=== PATIENT | male | born 1945 | race Caucasian/White ===

== ENCOUNTER → 2020-02-20 | Outpatient (CLI) | payer OTHER, MEDICARE | LOC: SJCVCIMAG 14:26 | DX: R06.00 Dyspnea, unspecified (principal); I48.0 Paroxysmal atrial fibrillation; I10 Essential (primary) hypertension; E78.5 Hyperlipidemia, unspecified ==

== ENCOUNTER → 2020-03-30 | Outpatient (CLI) | payer OTHER, MEDICARE | LOC: SJCVC 13:07 | PROVIDERS: ATTEND Internal Medicine Cardiovascular Disease | DX: I48.0 Paroxysmal atrial fibrillation (principal); I10 Essential (primary) hypertension; R94.31 Abnormal electrocardiogram [ECG] [EKG]; E78.00 Pure hypercholesterolemia, unspecified; K21.9 Gastro-esophageal reflux disease without esophagitis; Z79.82 Long term (current) use of aspirin; Z79.899 Other long term (current) drug therapy; Z87.891 Personal history of nicotine dependence ==

== ENCOUNTER → 2020-04-06 | Outpatient (CLI) | payer OTHER, MEDICARE | LOC: SJCVC 13:34 | PROVIDERS: ATTEND Internal Medicine Cardiovascular Disease | DX: R94.31 Abnormal electrocardiogram [ECG] [EKG] (principal); I11.9 Hypertensive heart disease without heart failure; I48.3 Typical atrial flutter; I48.0 Paroxysmal atrial fibrillation; K21.9 Gastro-esophageal reflux disease without esophagitis; Z79.899 Other long term (current) drug therapy; Z87.891 Personal history of nicotine dependence ==

== ENCOUNTER → 2020-04-23 | Outpatient (CLI) | payer OTHER, MEDICARE ==
[2020-04-23 10:12] LABS: ABSOLUTE NEUTROPHILS 1.8 thou/uL (1.4-8.2); BASOPHILS 1.3 % (0.0-2.0); EOSINOPHILS 3.9 % (0.0-3.0); HEMATOCRIT 43.1 % (42.0-52.0); HEMOGLOBIN 14.5 gm/dL (14.0-18.0); LYMPHOCYTES 35.6 % (24.0-44.0); MCH 35.1 pg (26.0-34.0); MCHC 33.6 g/dL (28.0-37.0); MCV 104.5 fL (80.0-100.0); PLATELET COUNT 189 thou/uL (150-400); POLYS 49.2 % (36.0-66.0); RBC 4.12 mil/uL (4.50-6.00); RDW 14.5 % (10.5-14.5); WBC 3.6 thou/uL (4.0-11.0)
[2020-04-23 10:36] LABS: CALCIUM 8.7 mg/dL (8.5-10.1); POTASSIUM 4.2 mmol/L (3.5-5.1); TOTAL BILIRUBIN 0.6 mg/dL (0.2-1.0)
== END ==
LOC: CATH 09:20 → CAT 11:28 → EDSTATUS 11:44 → CATH 11:47
PROVIDERS: ATTEND Internal Medicine Cardiovascular Disease
DX: N28.1 Cyst of kidney, acquired (principal); I48.91 Unspecified atrial fibrillation; I71.2 Thoracic aortic aneurysm, without rupture

== ENCOUNTER → 2020-04-23 | Outpatient (CLI) | payer OTHER, MEDICARE | LOC: LAB | PROVIDERS: ATTEND Internal Medicine Cardiovascular Disease | DX: Z01.812 Encounter for preprocedural laboratory examination (principal); Z20.828 Contact with and (suspected) exposure to other viral communicable diseases ==

== ENCOUNTER → 2020-07-19 | Outpatient (CLI) | payer OTHER, MEDICARE | LOC: CAT 09:41 | PROVIDERS: ATTEND Internal Medicine | DX: R91.1 Solitary pulmonary nodule (principal); I08.0 Rheumatic disorders of both mitral and aortic valves; N28.1 Cyst of kidney, acquired ==

== ENCOUNTER → 2020-08-12 | Outpatient (CLI) | payer OTHER, MEDICARE ==
[~2020-08-12] MED LIST: BYSTOLIC10 MG PO; GLUCOSAMINE1000 MG PO; IBU600 MG PO; LOSARTAN-HCTZ1 EAC3 PO; PRAVACHOL 20 MG20 M1 PO; PROPAFENONE 22225 M1 PO; VITAMIN C1000 MG PO; XARELTO20 MG PO
== END ==
LOC: SJCVCIMAG 07:15
PROVIDERS: ATTEND Internal Medicine Cardiovascular Disease
DX: I73.9 Peripheral vascular disease, unspecified (principal); R09.89 Other specified symptoms and signs involving the circulatory and respiratory systems; E78.5 Hyperlipidemia, unspecified; Z87.891 Personal history of nicotine dependence

== ENCOUNTER → 2020-08-13 | Outpatient (CLI) | payer OTHER, MEDICARE | LOC: LAB 08:38 | PROVIDERS: ATTEND Surgery Vascular Surgery | DX: Z01.812 Encounter for preprocedural laboratory examination (principal); Z20.828 Contact with and (suspected) exposure to other viral communicable diseases ==

== ENCOUNTER 2020-08-19 06:28 | Inpatient (IN) | payer OTHER, MEDICARE ==
[2020-08-13 13:33] LABS: URINE BILIRUBIN NEGATIVE (Negative); URINE BLOOD NEGATIVE (Negative); URINE CLARITY CLEAR; URINE COLOR YELLOW; URINE GLUCOSE-RANDOM* NEGATIVE (Negative); URINE KETONES NEGATIVE (Negative); URINE LEUKOCYTES-REFLEX NEGATIVE (Negative); URINE NITRITE-REFLEX NEGATIVE (Negative); URINE PROTEIN (DIPSTICK) NEGATIVE (Negative); URINE UROBILINOGEN 0.2 E.U./dl (0.2-1.0)
[2020-08-13 13:39] LABS: HEMATOCRIT 40.3 % (42.0-52.0); HEMOGLOBIN 13.9 gm/dL (14.0-18.0); MCH 35.2 pg (26.0-34.0); MCHC 34.4 g/dL (28.0-37.0); MCV 102.2 fL (80.0-100.0); PLATELET COUNT 175 thou/uL (150-400); RBC 3.94 mil/uL (4.50-6.00); RDW 13.2 % (10.5-14.5); WBC 3.8 thou/uL (4.0-11.0)
[2020-08-13 13:52] LABS: ALBUMIN 3.8 g/dL (3.4-5.0); CALCIUM 8.5 mg/dL (8.5-10.1); CREATININE 0.9 mg/dL (0.7-1.3); TOTAL BILIRUBIN 0.5 mg/dL (0.2-1.0); TOTAL PROTEIN 6.5 g/dL (6.4-8.2)
[2020-08-13 13:58] LABS: APTT 29.6 Seconds (24.5-32.8); INR 1.2; PROTIME 12.2 Seconds (9.3-11.4)
--- NOTE | 2020-08-13 14:00 | NUR ---
Pt in for his PAC appt this afternoon. EKG done showing incompleted LBBB. Thomas with Dr. Senior notified and asked that we set pt up to see Dr. Savage. Call placed to office, message left with Nathalie who returned call and asked for EKG--faxed over. Pt informed that he will need cardiac clearance from Dr. Savage prior to procedure next week. Pt and verbalize understanding. Both going over to the office to see if they can schedule that appt today. Pt is wanting to await COVID testing until Sunday in the event surgery is going to be postponed.
[2020-08-13 14:11] LABS: ABSOLUTE NEUTROPHILS 2.2 thou/uL (1.4-8.2)
--- NOTE | 2020-08-13 14:44 | EKG ---
[facility] [place] [address] [place] [address] ELECTROCARDIOGRAM REPORT Name: SALVATORE TOMLINSON Room #: [facility] IN ..#: [id number] Admission: Attend Phys: Babak Senior MD Discharge: Date of : 45 Report #: [id number] THIS REPORT FOR: cc: MANDIE - [place] family physician/PCP MANDIE - [place] family physician/PCP Brendan Trammell MD [facility] ~ THIS REPORT FOR: //name// [facility] Test Date: 2020-08-13 Test Time: 13:40:26 Pat Name: SALVATORE TOMLINSON Department: Room: Gender: Insulation Blanket Maker: [facility] : 1945 Requested By: Babak Senior Order Number: [id number] : Brendan Trammell Measurements Intervals [place] Rate: 58 P: 45 SC: 211 QRS: -43 QRSD: 118 T: -31 QT: 460 QTc: 452 Interpretive Statements Sinus rhythm Non specific ST-T changes lead III No previous ECG available for comparison Electronically Signed On 08-13-2020 14:44:30 MEDICAL RECORDS LIBRARY PROFESSOR by Brendan Trammell [email or web address] <ELECTRONICALLY SIGNED> By: Brendan Trammell MD, FACC 08/13/20 1444 1340 1340 Brendan Trammell MD, FACC /EPI
[2020-08-19] VITALS (31 sets, daily range): BP systolic 104–147; BP diastolic 43–73
[~2020-08-19] VITALS: Ht 182.9 cm; Wt 91.2 kg
--- NOTE | 2020-08-19 18:01 | NUR ---
PT ARRIVED TO THE UNIT ON PHYSICAL THERAPY PROFESSOR FENTANYL DRIP AT 1300, R CHEST TUBE PRESENT SET AT 20mmHG SUCTION, SANGUINEOUS FLUID DRAINING. PT C/O 7/10 PX, WITH USAGE OF PHYSICAL THERAPY PROFESSOR AND NONPHARM INTERVENTION PT WAS ABLE TO STATE 2/10 PX AT THE END OF THE SHIFT. AOX4, PHONE/GLASSES AT BEDSIDE. OCCASIONAL C/O NAUSEA WITH MOVEMENT, WHICH SUBSIDES WITH NO INTERVENTION. NO EMESIS THIS SHIFT. ALL SENSATIONS ARE INTACT, STRONG MOTOR STRENGTH TO ALL EXTREMETIES, PT TOLERATING PO, DECENT APPETITE. PT FAMILY AT BEDSIDE. CURRENTLY ON CARDENE DRIP AT 5. WAS AT THE BEDSIDE THIS SHIFT, AT 1356 ASKED RN ABOUT THE WORD GRANULOMATOUS WELL PT'S PROGNOSIS. RN DEFERRED THE QUESTIONS TO WHO LATER CAME BY TO SEE THE PATIENT AND PT'S WAS ABLE TO FREELY HAVE HER QUESTIONS ANSWERED TO CONTENT.
[2020-08-20] VITALS (21 sets, daily range): BP systolic 97–122; BP diastolic 51–73
--- NOTE | 2020-08-20 04:55 | NUR ---
ASSUMED PT CARE AT 1900. PT A&0X4, VSS. ON 5 MCG OF CARDENE; BEGAN TITRATING CARDENE OFF, PT TOLERATED IT WELL, VITAL SIGNS REMAINS STABLE. PT ON 2L NC, SATS 94%. R CHEST TUBE IN PLACE SEROUS DRAINAGE NOTED GREAT U/O. PT RATES PAIN 3/10 TO 4/10 PAIN, RAND SEWER STILL IN USE. PT IS STABLE, WILL CONTINUE TO MONITOR.
[2020-08-20 06:30] LABS: HEMATOCRIT 35.4 % (42.0-52.0); HEMOGLOBIN 11.9 gm/dL (14.0-18.0); MCH 34.8 pg (26.0-34.0); MCHC 33.6 g/dL (28.0-37.0); MCV 103.6 fL (80.0-100.0); RBC 3.41 mil/uL (4.50-6.00); RDW 13.7 % (10.5-14.5); WBC 9.9 thou/uL (4.0-11.0)
[2020-08-20 06:46] LABS: CALCIUM 7.4 mg/dL (8.5-10.1); POTASSIUM 4.1 mmol/L (3.5-5.1)
--- NOTE | 2020-08-20 12:12 | NUR ---
BACK TO BED W ASSIST X1. PT C/O BLADDER FEELING FULL-BLADDER SCANNED X2 W ZERO SHOWING BOTH TIMES. PT C/O ITCHING-D/W HIM & HIS FENTANYL CIRCLE EDGER-HE'S RECEIVING BASAL WELL PRN DOSES. OFFERED BENADRYL-PT THOUGHT ABOUT IT FOR A WHILE THEN SAID NO. NO RASH,NO RAISED BUMPS. NO SOB OR WHEEZING.SETTLED FOR NAP.--VW
--- NOTE | 2020-08-20 15:29 | NUR ---
chart review. cm visited with xavier and manish via phone call. intro to cm and dcp. both reported " live at home, 4 steps enter then 9 steps then landing the 8 more up to bedrooms, if could not do that, then can make it work on the main level. no dme, drives, independent prior to hospital. manage own medication. pcp dr Mike Alfredo. do not think he will need any home health"/xavier and . he is still on o2 per nc, if needs home o2 over weekend resp therapy can arrange for xavier. physical and ot worked with xavier today. will cont following as needed for dc needs.
--- NOTE | 2020-08-20 16:12 | O ---
[facility] [place] [address] [place] [address] OPERATIVE REPORT Name: SALVATORE TOMLINSON Basil Room #: 249-P ADM IN M.R.#: [id number] Admission: 08/19/20 Attend Phys: Babak Senior MD Discharge: Date of : 45 Report #: [id number] THIS REPORT FOR: cc: MANDIE - No family physician/PCP MANDIE - No family physician/PCP Babak Senior MD ~ CC: [facility] physician/PCP Babak Senior DATE OF SERVICE: 08/19/2020 PREOPERATIVE DIAGNOSIS: Solitary nodule, right lower lobe of lung. POSTOPERATIVE DIAGNOSIS: Solitary nodule, right lower lobe of lung; granuloma by frozen section. SURGEON: Babak Senior MD INVOICE CODER: SARAH Alston. ANESTHESIA: General. INDICATIONS: The patient is a 75-year-old, referred by Dr. Torsten Nelson. The patient has a right lower lobe solitary pulmonary nodule that has seemed to grow in size over serial observations and has some activity on PET scan. The patient also has traveled to the [facility] and there is some suspicion that this could be granulomatous disease as well as malignancy. FINDINGS AND TECHNIQUE: After general anesthesia was established, flexible diagnostic bronchoscopy was performed. No endobronchial lesions were noted. A double lumen endotracheal tube was placed and its position ascertained with bronchoscopic guidance. The patient was positioned with right side up. Exposure was obtained through typical video-assisted thoracoscopy ports and the adhesions between long and chest wall were divided. These were more vascular than typical and ultimately this necessitated an open approach. Exposure was obtained through a posterolateral thoracotomy and the chest wall. Bleeding was less severe than it had appeared through the scope, but nevertheless it was dealt with. The lesion in the lower lobe was identified and wedge resection was done with serial application of staplers. This was submitted for frozen section and a diagnosis of granuloma was obtained. Hemostasis was obtained in all areas and then the chest tube was brought through the lowest port and then the incision was closed in the usual fashion. It should be mentioned that the thoracotomy was done in rib sparing, nerve [address] [address] OPERATIVE REPORT Name: SALVATORE TOMLINSON Room #: 249-P [facility] IN [facility].#: [id number] Admission: 08/19/20 Attend Phys: Babak Senior MD Discharge: Date of : 45 Report #: [id number] sparing technique to avoid pressure on the intercostal bundle. As mentioned, chest was irrigated with antibiotic solution. Chest was closed in the usual fashion to maintain the rib sparing, nerve sparing approach. The patient tolerated the procedure well and was taken to the recovery area in good condition. All counts reported as correct. <ELECTRONICALLY SIGNED> By: Babak Senior MD 08/20/20 1612 1035 1048 Babak Senior MD /nt
--- NOTE | 2020-08-20 19:59 | NUR ---
PT. ARRIVED AT FLOOR AROUND 185; DRESSING OVER CHEST TUBE BLEDDING; DRESSING CHANGED; A0X4; SR ON THE MONITOR; PASSED ON REPORT;
[2020-08-21 00:18] VITALS: BP 96/44
[2020-08-21 05:09] VITALS: BP 100/56
--- NOTE | 2020-08-21 06:25 | NUR ---
PT IS ALERT AND ORIENTED X4. LUNGS ARE CLEAR TO DIMINISHED. COMPLAINS OF SOME RIGHT SIDED PAIN STATUS POST BRONCHOSCOPY AND RIGHT THORACOTOMY. COMPLAINS OF SOME PAIN ON THE RIGHT SIDE. SLEPT DURING THE NIGHT. CHEST TUBE TO WATER SEAL. SMALL AMOUNT OF BLOODY DRAINAGE NOTED ON THAT RIGHT SIDE. SITIING UP WATCHING TV THIS AM AND PLEASANT. CALL LIGHT WITHIN REACH IF NEEDS NURSING ASSISTANCE FROM STAFF.
[2020-08-21 08:41] VITALS: BP 104/58
[2020-08-21 11:59] VITALS: BP 116/71
[2020-08-21 17:02] VITALS: BP 127/73
--- NOTE | 2020-08-21 17:23 | NUR ---
RECEIVED PT'S CARE THIS AM AROUND 0715; PT. ON BED; ALERT; DURING AM ASSESSMENT AOX4; C/O PAIN; PRN PAIN MEDICATION GIVEN WITH AM MEDICATIONS; C/O ITCHING OVER BACK; REQUESTED LOTION; LOTION APPLIED TO BACK; DURING RE-ASSESSMENT PT. C/O BURNING OVER BACK; PER PT'S SPOUSE PT. C/O ITCHING OVER "YESTERDAY", 08/21/2020, IN ICU THEREFORE DR. SALOMON D/Vito FENTANYL; PRN BENADRYL GIVEN; RE-ASSESSMENT PT. FEELING BETTER; EDUCATED ABOUT FALL PRECAUTIONS; UNDERSTANDING; DRESSING CHANGED THIS AM; SR-SB ON THE MONITOR; REQUESTED TO AMBULATE AROUND THE UNIT; [facility] [facility]; AROUND 1600 PT'S CARE TRANSFER TO INDIRA SAINI; ASSESSMENT CHARGED; FOLLOWING POC; PASSED ON REPORT;
--- NOTE | 2020-08-21 17:25 | NUR ---
pt ambulated hallway twice while holding chest tube in right hand, steady gait, walked at a quick pace, dr WATTS CAME AND REMOVED PT'S CHEST TUBE, PT NOW RESTING IN BED, PAIN MED AND BENADRY GIVEN FOR PAIN AND A GROWING ITCHING ON PT'S BACK, PT ASKED TO WEAR FACEMASK IN ROOM, SEEMS A LITTLE ANXIOUS, WILL REINFORCE EDUCATION, SPOKE WITH ABOUT NEW VISITOR POLICY, DR WATTS SAID PT WILL PROB GO HOME AFTER HE SEES HIM TOMORROW.
[2020-08-21 20:47] VITALS: BP 126/62
[2020-08-22 03:38] VITALS: BP 133/84
--- NOTE | 2020-08-22 06:11 | NUR ---
assumed pt care at the change of shift, pt is awake, alert and orientedx4, sr on the monitor, assessments as charted, c/o of right chest pain,non cardiac, pain meds given with relief, ambulated on the hallway, denies sob, surgical site cdi, still no bm this shift, denies constipation, no needs at this time, will passon report
[2020-08-22 08:26] VITALS: BP 149/75
[2020-08-22 09:53] VITALS: BP 149/75
--- NOTE | 2020-08-22 10:12 | NUR ---
ASSESSMENT CHARTED. PT ALERT AND ORIENTED. VSS. DENIED HAVING PAIN OR DISCOMFORT. REPORT FEELING BETTER TODAY. SEEN BY DR. SALOMON. ORDERS GIVED TO DISCHARGE PT TO HOME. DISCHARGE INSTRUCTIONS GIVEN TO PT PT VERBERLISED UNDERSTANDING.
--- NOTE | 2020-08-23 17:06 | PATH ---
[facility] [address] [place] [address] PATHOLOGY RPT PROCEDURE Name: SALVATORE TOMLINSON Room #: 219-P [facility] IN M.R.#: [id number] Admission: 08/19/20 Date of : 45 Discharge: 08/22/20 Report #: [id number] Path Case #: [id number] [facility] Accession Number: [id number] . 01 Material submitted: . lung - WEDGE RESECTION RIGHT LOWER LOBE LUNG - FS. Modifiers: right, lower lobe . 01 Clinical history: . LUNG MASS . 02 Frozen section diagnosis: . FROZEN SECTION DIAGNOSIS: (Tila Montana M.D.): . FSA1. Lung, right lower lobe, wedge resection: - Granulomatous inflammation. . Findings are discussed with Dr. Babak Senior in OR7 at [facility] and a written report is placed in the patient's chart. . Frozen section performed at [facility], [address] [facility] , [place] [address]. . . FROZEN SECTION GROSS DESCRIPTION: Received from the OR labeled with the patient's name, "wedge resection right lower lobe lung" consists of a 22 gram wedge resection measuring 7 x 5.3 cm. The stapled margins measure 5 cm and 2 cm each. There is no pleural puckering identified. The pleural surface is inked black and at this point the specimen is serially sectioned to show a 2.1 x 1.8 x 2.0 cm well circumscribed mass without definitive puckering or sclerosing of the adjacent pleural surface. The closest 5 cm stapled margin is 5 mm away. The lucho are removed and a client care representative section is submitted for frozen section as FSA1. This is subsequently submitted for permanent sections as A1. The remainder of the lesion with its adjacent lung parenchyma is submitted in A2-A6 for permanent sections only. The unremarkable lung parenchyma is submitted in A7. (IUV/db; 08/19/2020) IZV/LBQ . 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 - Several yeast forms identified on GMS fungal special stain. - Negative for mycobacteria on AFB special stain. - Adjacent lung parenchyma showing mild emphysematous changes along with mild interstitial chronic inflammation. [address] [address] PATHOLOGY RPT PROCEDURE Name: BUSHRASALVATORE Basil Room #: 219-P DIS IN M.R.#: [id number] Admission: 08/19/20 Date of : 45 Discharge: 08/22/20 Report #: [id number] Path Case #: [id number] - Negative for malignancy. . (IUV:mml; 08/23/2020) QLM 08/23/2020 1257 Local . 02 Comment: Properly controlled AFB and GMS fungal special stains are performed on A3. Examination shows several yeast forms ranging from approximately 4 micrometers to much larger spherules as well as possible endospores. There are no hyphal forms identified, suggestive of a monomorphic fungus. The differential diagnosis includes coccidioides spp based on the morphology of yeast forms, spherules as well as endospores. However, the differential diagnosis includes Histoplasma, An, Rhinosporidium amongst others. Based on the differential diagnosis, antigen detection in urine or serum, serological studies as well as possible PCR (DNA detection) in sputum are suggested, if clinically indicated. There is no evidence of dysplasia, atypical adenomatous hyperplasia or malignancy identified. . (IUV:mml; 08/23/2020) . 02 Electronically signed: . Tila Montana MD, Pathologist NPI- [id number] . 01 Gross description: . SEE FROZEN SECTION GROSS DESCRIPTION. /LBQ 08/20/2020 0611 Local . 02 Pathologist provided ICD-10: R91.8, J98.4 . 02 CPT . 703097, 485265, 592711, 527030 Specimen Comment: A courtesy copy of this report has been sent to [phone] Specimen Comment: Report sent to Performed at: [address], [place] [id number] MD Elder Rosa MD Phone: [phone] Performed at: [address] [id number] MD Tila Montana MD Phone: [phone]
== END 2020-08-22 10:16 | disposition home or self-care (01) | DRG 163 ==
LOC: ICU 06:28 → TBA 06:28 → PRE 12:36 → ICU 12:54 → PRE 15:51 → 2N 08-20 19:45
PROVIDERS: Physician Assistant; ADMIT Surgery Vascular Surgery; ATTEND Surgery Vascular Surgery
PROC: 0BBF0ZZ Excision of Right Lower Lung Lobe, Open Approach (ICD-10-PCS; principal; 2020-08-19)
PROC: 0W9900Z Drainage of Right Pleural Cavity with Drainage Device, Open Approach (ICD-10-PCS; principal; 2020-08-19)
PROC: 0BJ08ZZ Inspection of Tracheobronchial Tree, Via Natural or Artificial Opening Endoscopic (ICD-10-PCS; principal; 2020-08-19)
DX: J84.10 Pulmonary fibrosis, unspecified (principal); J96.01 Acute respiratory failure with hypoxia; J98.11 Atelectasis; R91.1 Solitary pulmonary nodule; I10 Essential (primary) hypertension; E78.5 Hyperlipidemia, unspecified; I48.91 Unspecified atrial fibrillation; R91.8 Other nonspecific abnormal finding of lung field; Z96.653 Presence of artificial knee joint, bilateral
CPT/HCPCS: 10078; 10081; 47405; 50010; 50101; 50386; 50417; 50455; 50497; 50607; 50649; 50739; 50740; 51301; 52265; 52266; 54118; 56455; 56462; 56524; 56525; 56526; 56527; 56528; 62110; 62900; 65020; 65040; 65090; 65135; 70005

== ENCOUNTER → 2020-09-16 | Outpatient (CLI) | payer OTHER, MEDICARE | LOC: SJCVC 09:06 | PROVIDERS: ATTEND Internal Medicine Cardiovascular Disease | DX: I48.92 Unspecified atrial flutter (principal); I44.30 Unspecified atrioventricular block; I48.0 Paroxysmal atrial fibrillation; I77.9 Disorder of arteries and arterioles, unspecified; E78.5 Hyperlipidemia, unspecified; I10 Essential (primary) hypertension; D68.59 Other primary thrombophilia; E78.00 Pure hypercholesterolemia, unspecified ==

== ENCOUNTER 2020-09-25 10:34 | Emergency (ER) | payer OTHER, MEDICARE ==
[~2020-09-25] VITALS: Ht 182.9 cm; Wt 87.1 kg
[2020-09-25 11:02] LABS: ABSOLUTE NEUTROPHILS 3.5 thou/uL (1.4-8.2); BASOPHILS 0.4 % (0.0-2.0); EOSINOPHILS 2.1 % (0.0-3.0); HEMATOCRIT 35.5 % (42.0-52.0); HEMOGLOBIN 11.7 gm/dL (14.0-18.0); LYMPHOCYTES 20.1 % (24.0-44.0); MCH 34.4 pg (26.0-34.0); MONOCYTES 16.9 % (1.0-8.0); PLATELET COUNT 213 thou/uL (150-400); POLYS 60.5 % (36.0-66.0); RBC 3.42 mil/uL (4.50-6.00); RDW 13.9 % (10.5-14.5); WBC 5.8 thou/uL (4.0-11.0)
[2020-09-25 11:08] LABS: ANION GAP 9 mmol/L (7-16); BUN 15 mg/dL (7-18); CALCIUM 8.6 mg/dL (8.5-10.1); CHLORIDE 103 mmol/L (98-107); CO2 27 mmol/L (21-32); GLUCOSE 125 mg/dL (74-106); SODIUM 139 mmol/L (136-145)
[2020-09-25 11:14] LABS: ALBUMIN 3.1 g/dL (3.4-5.0); SGOT 30 U/L (15-37); SGPT 53 U/L (16-63); TOTAL BILIRUBIN 0.9 mg/dL (0.2-1.0); TOTAL PROTEIN 6.4 g/dL (6.4-8.2); TROPONIN-I <0.06 ng/mL (<0.06)
[2020-09-25] MEDS ORDERED: ZPAK PO (12:46)
[2020-09-25] MEDS ORDERED: OMEPRAZOLE 20 M20 M1 PO (13:04)
[2020-09-25 13:05] VITALS: BP 132/78
--- NOTE | 2020-09-27 07:42 | EKG ---
[place] [address] [facility] [place] [address] ELECTROCARDIOGRAM REPORT Name: SALVATORE TOMLINSON [id number] Admission: 09/25/20 Attend Phys: Discharge: 09/25/20 Date of : 45 Report #: [id number] [facility] ED Test Date: 2020-09-25 Test Time: 11:17:43 Pat Name: SALVATORE TOMLINSON Department: Room: Gender: M Professor In Family Studies: cameron irwin : 1945 Requested By: Benigno Bragg Order Number: [id number] MD: Eliseo Rivera Measurements Intervals [place] Rate: 72 P: AL: QRS: -38 QRSD: 115 T: 18 QT: 401 QTc: 439 Interpretive Statements Atrial fibrillation Nonspecific intraventricular conduction delay Compared to ECG 08/13/2020 13:40:26 Atrial fibrillation is new ST and T wave abnormalities less pronounced Electronically Signed On 09-27-2020 7:42:36 SUPERVISOR FIBER LOCKING by Eliseo Rivera [email or web address] <ELECTRONICALLY SIGNED> By: Eliseo Rivera MD, [facility] 09/27/20 0742 1117 1117 Eliseo Rivera MD, FACC /EPI
== END 2020-09-25 13:05 | disposition home or self-care (01) ==
LOC: ER 10:34
PROVIDERS: Emergency Medicine
DX: J18.9 Pneumonia, unspecified organism (principal); I48.91 Unspecified atrial fibrillation; I10 Essential (primary) hypertension; F17.210 Nicotine dependence, cigarettes, uncomplicated; Z96.612 Presence of left artificial shoulder joint; Z96.653 Presence of artificial knee joint, bilateral; Z79.899 Other long term (current) drug therapy; Z20.828 Contact with and (suspected) exposure to other viral communicable diseases

== ENCOUNTER → 2020-09-29 | Outpatient (CLI) | payer OTHER, MEDICARE ==
[~2020-09-29] MED LIST changes: +OMEPRAZOLE 20 M20 M1 PO; +ZPAK PO
== END ==
LOC: RAD 09:33
PROVIDERS: ATTEND Surgery Vascular Surgery
DX: I25.119 Atherosclerotic heart disease of native coronary artery with unspecified angina pectoris (principal)

== ENCOUNTER → 2020-09-30 | Outpatient (CLI) | payer OTHER, MEDICARE ==
[~2020-09-30] VITALS: Ht 182.9 cm; Wt 88.5 kg
[2020-09-30 06:59] VITALS: BP 145/91
--- NOTE | 2020-09-30 09:00 | TEE ---
[facility] [place] [address] [place] [address] TRANSESOPHAGEAL ECHOCARDIOGRAM Name: SALVATORE TOMLINSON Room #: [facility]#: [id number] Admission: 09/30/20 Attend Phys: Brendan Trammell MD, Discharge: Date of : 45 Report #: [id number] THIS REPORT FOR: cc: KELSEY [place] FAMILY PHYSICIAN or PCP Brendan Trammell MD [facility] ~ APPROVED REPORT Study performed: 09/30/2020 07:53:11 EXAM: Transesophageal Echocardiogram Patient Location: Out-Patient Status: routine BSA: 2.11 HR: 92 bpm BP: 139/89 mmHg Rhythm: NSR Indications Atrial Fibrillation Cardioversion Procedure After obtaining informed consent, patient underwent transesophageal echo in the Finding Fastener Holding. Type of Sedation : Conscious Sedation Sedation was administered by INDIRA Perry. Sedation was achieved intravenously with: Versed (6) Fentanyl (50) Transesophageal probe was inserted and advanced into esophagus without difficulty by Brendan Trammell MD [facility]. Echo enhancement indication: R/O Septal defect. Echo enhancement agent administered: Agitated Saline The CHESTER was performed without complications. Synchronized Cardioversion attempted: Successful Synchronized Cardioversion acheived with 120 Joules after 1 attempt(s). Rhythm following Synchronized Cardioversion: Normal Sinus Rhythm Throughout the procedure, the blood pressure, pulse oximetry, cardiac rhythm, and rate were monitored. The patient tolerated the procedure without adverse effects. Recovery from conscious sedation was uneventful and vital signs were stable. [facility] [address] [place] [address] TRANSESOPHAGEAL ECHOCARDIOGRAM Name: SALVATORE TOMLINSON Basil Room #: [facility]#: [id number] Admission: 09/30/20 Attend Phys: Brendan Trammell, Discharge: Date of : 45 Report #: [id number] Left Ventricle The left ventricle is normal size. There is normal left ventricular wall thickness. Left ventricular systolic function is low normal. LVEF is 50%. Right Ventricle The right ventricle is normal size. The right ventricular systolic function is normal. Atria Left atrium is dilated. No thrombus is visualized in the left atrium or appendage. No shunting noted with contrast bubble injection. The right atrium size is normal. Aortic Valve The aortic valve is normal in structure; leaflets mildly thickened. Mild aortic regurgitation. There is no aortic valvular stenosis. Mitral Valve The mitral valve is normal in structure. Mild to moderate mitral regurgitation. No evidence of mitral valve stenosis. Tricuspid Valve The tricuspid valve is normal in structure. trace tricuspid regurgitation. Great Vessels The aortic root is normal in size. The ascending aorta is normal in size. Pericardium There is no pericardial effusion. <Conclusion> Normal left ventricle size/wall thickness EF 50% Color-flow Doppler study was performed in the aortic/mitral/tricuspid valve Mild aortic valve insufficiency Mild to moderate central mitral valve insufficiency Mild left atrial enlargement Normal right atrial size Trace tricuspid valve insufficiency No evidence of ASD/VSD by color-flow Doppler/bubble study No pericardial effusion [facility] [address] [place] [address] TRANSESOPHAGEAL ECHOCARDIOGRAM Name: SALVATORE TOMLINSON Room #: [facility]#: [id number] Admission: 09/30/20 Attend Phys: Brendan Trammell, Discharge: Date of : 45 Report #: [id number] Patient successfully cardioverted to sinus rhythm after 120 J in a biphasic mode Patient tolerated procedure well Twelve-lead ECG pending <ELECTRONICALLY SIGNED> By: Brendan Trammell MD, FACC 09/30/20899 9 9 Brendan Trammell MD, FACC /INF
--- NOTE | 2020-09-30 10:11 | EKG ---
[address] [address] ELECTROCARDIOGRAM REPORT Name: SALVATORE TOMLINSON Room #: [facility]#: [id number] Admission: 09/30/20 Attend Phys: Brendan Trammell MD, Discharge: Date of : 45 Report #: [id number] [facility] Test Date: 2020-09-30 Test Time: 08:45:40 Pat Name: SALVATORE TOMLINSON Department: Room: Gender: M Sustainability Communicator: MARIANELA : 1945 Requested By: Brendan Trammell Order Number: [id number] MD: Brendan Trammell Measurements Intervals [place] Rate: 61 P: 37 CT: 220 QRS: -36 QRSD: 129 T: -10 QT: 478 QTc: 482 Interpretive Statements Sinus rhythm Prolonged CT interval Compared to ECG 09/25/2020 11:17:43 First degree AV block now present Atrial fibrillation no longer present Intraventricular conduction delay no longer present Electronically Signed On 09-30-2020 10:10:53 NURSE TECHNICIAN by Brendan Trammell [email or web address] <ELECTRONICALLY SIGNED> By: Brendan Trammell MD, [facility] 09/30/20 1010 Brendan Trammell MD, [facility] /EPI
== END | disposition home or self-care (01) ==
LOC: CATH 06:41
PROVIDERS: ATTEND Internal Medicine
DX: I48.91 Unspecified atrial fibrillation (principal); I08.3 Combined rheumatic disorders of mitral, aortic and tricuspid valves; I10 Essential (primary) hypertension; J44.9 Chronic obstructive pulmonary disease, unspecified; E78.5 Hyperlipidemia, unspecified; Z98.890 Other specified postprocedural states; Z79.899 Other long term (current) drug therapy; Z96.612 Presence of left artificial shoulder joint; Z96.653 Presence of artificial knee joint, bilateral; Z79.01 Long term (current) use of anticoagulants; Z87.891 Personal history of nicotine dependence

== ENCOUNTER → 2021-04-22 | Outpatient (CLI) | payer OTHER, MEDICARE | LOC: SJCVCIMAG 07:28 | PROVIDERS: ATTEND Internal Medicine Cardiovascular Disease | DX: I08.8 Other rheumatic multiple valve diseases (principal); I48.91 Unspecified atrial fibrillation; I49.3 Ventricular premature depolarization; R06.00 Dyspnea, unspecified; I10 Essential (primary) hypertension; E78.5 Hyperlipidemia, unspecified; I77.9 Disorder of arteries and arterioles, unspecified; Z79.82 Long term (current) use of aspirin; Z79.899 Other long term (current) drug therapy; Z87.891 Personal history of nicotine dependence ==

== ENCOUNTER → 2021-09-09 | Outpatient (CLI) | payer OTHER, MEDICARE | LOC: SJCVC 15:23 | PROVIDERS: ATTEND Internal Medicine Cardiovascular Disease | DX: I44.7 Left bundle-branch block, unspecified (principal); R94.31 Abnormal electrocardiogram [ECG] [EKG]; I48.0 Paroxysmal atrial fibrillation; E78.00 Pure hypercholesterolemia, unspecified; I10 Essential (primary) hypertension; D68.59 Other primary thrombophilia; K21.9 Gastro-esophageal reflux disease without esophagitis; I25.10 Atherosclerotic heart disease of native coronary artery without angina pectoris; Z82.49 Family history of ischemic heart disease and other diseases of the circulatory system; F17.210 Nicotine dependence, cigarettes, uncomplicated; Z79.82 Long term (current) use of aspirin; Z79.899 Other long term (current) drug therapy ==